=== PATIENT | male | born 1995 | race African-American/Black ===

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

== ENCOUNTER 2017-07-30 23:00 | Emergency (ER) | payer OTHER ==
[2017-07-30 23:18] VITALS: BP 146/87; PULSE 98; RESP 16; O2SAT 100
--- NOTE | 2017-07-31 00:12 | PD ---
HPI Chief Complaint: Fall Time Seen by Provider: 23:19 Travel History International Travel<30 days: No Contact w/Intl Traveler<30days: No Traveled to known affect area: No History of Present Illness HPI Patient is a 22-year-old male who was trapped in a hotel elevator he said the elevator was trapped for over half an hour it was jumping jolting up and down he fell into the wall hit his head against the wall her cervical neck spinous process tenderness as well he shows me he has a lump in the back of his head and mild tenderness elbow on the right olecranon area. No LOC no nausea no vomiting no visual changes he did not take any medication for the pain and he has not seen another provider happened just prior to arrival they called paramedics who transported them 3 patients who were in the elevator to the [facility] Past Medical History Diminished Hearing: No Social History Alcohol Use: Yes (ocassionally) Tobacco Use: No Substance Use: No Allergies-Medications (Allergen,Severity, Reaction): Coded Allergies: No Known Allergies (Verified Adverse Reaction, Unknown, 07/30/17) Reported Meds & Prescriptions Reported Meds & Active Scripts Active Flexeril (Cyclobenzaprine HCl) 10 Mg Tab 10 Mg PO BID Ibuprofen 600 Mg Tab 600 Mg PO Q6H PRN Physical Exam Narrative GENERAL: c-collar and back board SKIN: Warm and dry. HEAD: Atraumatic. Normocephalic. EYES: Pupils equal and round. No scleral icterus. No injection or drainage. ENT: No nasal bleeding or discharge. Mucous membranes pink and moist. NECK: Trachea midline. No JVD. c-collar mild tender paarcervical CARDIOVASCULAR: Regular rate and rhythm. RESPIRATORY: No accessory muscle use. Clear to auscultation. Breath sounds equal bilaterally. GASTROINTESTINAL: Abdomen soft, non-tender, nondistended. Hepatic and splenic margins not palpable. MUSCULOSKELETAL: Extremities without clubbing, cyanosis, or edema. No obvious deformities. NEUROLOGICAL: Awake and alert. No obvious cranial nerve deficits. Motor grossly within normal limits. Five out of 5 muscle strength in the arms and legs. Normal speech. PSYCHIATRIC: Appropriate mood and affect; insight and judgment normal. Data Data Last Documented VS Vital Signs Date Time Temp Pulse Resp B/P (MAP) Pulse Ox O2 Delivery O2 Flow Rate FiO2 07/30/17 23:52 99 Room Air 07/30/17 23:18 98 16 146/87 (106) Orders Orders Ibuprofen (Motrin) (07/31/17 00:15) Spine, Cervical Compl([id number]) (07/31/17 ) Ed Discharge Order (07/31/17 02:17) MDM Medical Decision Making Medical Screen Exam Complete: Yes Emergency Medical Condition: Yes Differential Diagnosis back injury vs muscle spasm vs radiculopathy other contusion other Narrative Course Pt has no obvious injuries no long bone pain only paracervical strain xrays negative Diagnosis Primary Impression: Neck ache Patient Instructions: General Instructions, Muscle Spasm (ED) Scripts Cyclobenzaprine (Flexeril) 10 Mg Tab 10 MG PO BID for Muscle Spasm, #6 TAB 0 Refills Prov: Butch Xavier MD 07/31/17 Ibuprofen (Ibuprofen) 600 Mg Tab 600 MG PO Q6H Y for Pain/Inflammation, #40 TAB 0 Refills Prov: Butch Xavier MD 07/31/17 Butch Xavier MD Jul 31, 2017 00:12
[2017-07-31] MEDS ORDERED: IBUPROFEN 600 MG TAB PO ONE (00:15)
--- NOTE | 2017-07-31 02:00 | RADRPT ---
EXAM DATE/TIME: 07/31/2017 01:40 [place] COMPARISON: No previous studies available for comparison. INDICATIONS : Pt was in elevator that dropped up and down 3 times. Pain to back of neck. MEDICAL HISTORY : None. SURGICAL HISTORY : None. ENCOUNTER: Initial ACUITY: 1 day PAIN SCORE: 7/10 LOCATION: Bilateral neck Cervical FINDINGS: Five view examination was performed. There is normal alignment and curvature of the vertebral bodies down to the level of C7. No evidence of fracture or subluxation. Vertebral body height is normal. The disc spaces are maintained. The prevertebral soft tissues are of normal thickness. The atlanto -axial articulation is intact. The bony neural foramen are patent bilaterally. CONCLUSION: Normal radiographic appearance of the cervical spine. Timothy Harvey MD on July 31, 2017 at 1:58 Board Certified Radiologist. This report was verified electronically.
[2017-07-31] MEDS ORDERED: CYCL10TA PO (02:11)
[2017-07-31] MEDS ORDERED: IBUP-232 PO (02:11)
== END 2017-07-31 02:21 | disposition home or self-care (01) ==
LOC: NEPC 23:00
DX: M54.2 Cervicalgia (principal)
CPT/HCPCS: 72050; 99283